=== PATIENT | male | born 1960 | race Two or more races ===

== ENCOUNTER 2020-06-12 01:20 | Inpatient (IN) | payer MEDICAID ==
[~2020-06-12] VITALS: Ht 175.3 cm; Wt 113.6 kg
[2020-06-12] VITALS (18 sets, daily range): BP systolic 108–142; BP diastolic 50–80
--- NOTE | 2020-06-12 01:34 | NUR ---
NEW LABS NOT ORDERED AT THIS TIME
[2020-06-12] MEDS ORDERED: acetaminophen 325mg tablet PO PRN (02:25)
[2020-06-12] MEDS ORDERED: potassium CL 10mEq/100ml bag 100 ML IV PRN ×2 (02:25)
[2020-06-12] MEDS ORDERED: mag hydrox/Alum hydrox/simeth 30ml oral suspension PO PRN (02:25)
[2020-06-12] MEDS ORDERED: magnesium 4gm in 100ml NS 100 ML IV PRN (02:25)
[2020-06-12] MEDS ORDERED: docusate sod 100mg capsule PO PRN (02:25)
[2020-06-12] MEDS ORDERED: potassium Cl 20 mEq SR tablet PO PRN ×2 (02:25)
[2020-06-12] MEDS ORDERED: ondansetron/PF 4mg/2ml inj IV PRN ×2 (02:25→15:05)
[2020-06-12] MEDS ORDERED: HYDROmorphone inj. 0.5 MG/0.5 ML DISP.SYRIN IV PRN (02:25)
[2020-06-12] MEDS ORDERED: magnesium 2GM in 50ml NS 50 ML IV PRN (02:25)
[2020-06-12] MEDS ORDERED: proparacaine 0.5% ophthalmic drops 15ml RIGHTEYE ONE (02:35)
--- NOTE | 2020-06-12 03:00 | NUR ---
Patient in room [facility]. I have received report from HARLEY Epperson and had the opportunity to ask questions and assume patient care.
[2020-06-12 03:13] LABS: BASOPHILS # (AUTO) 0.1 X10'3 (0-0.2); BASOPHILS % (AUTO) 0.9 % (0-1); EOSINOPHILS # (AUTO) 0.3 X10'3 (0-0.9); EOSINOPHILS % (AUTO) 3.4 % (0-6); HEMOGLOBIN 13.4 g/dl (14.0-17.9); LYMPHOCYTES # (AUTO) 1.9 X10'3 (1.1-4.8); LYMPHOCYTES % (AUTO) 25.2 % (21-51); MEAN CORPUSCULAR HEMOGLOBIN 31.4 PG (27.0-31.0); MEAN CORPUSCULAR HGB CONC 33.5 g/dL (33.0-36.5); MEAN CORPUSCULAR VOLUME 93.6 FL (78-98); MEAN PLATELET VOLUME 9.1 FL (7.4-10.4); MONOCYTES # (AUTO) 0.6 X10'3 (0-0.9); MONOCYTES % (AUTO) 7.9 % (2-12); NEUTROPHILS # (AUTO) 4.7 X10'3 (1.8-7.7); NEUTROPHILS % (AUTO) 62.6 % (42-75); PLATELET COUNT 123 X10'3 (140-440); RED BLOOD COUNT 4.27 X10'6 (4.70-6.10); RED CELL DISTRIBUTION WIDTH 14.6 % (11.5-14.5); WHITE BLOOD COUNT 7.5 X10'3 (4.5-11.0)
[2020-06-12] MEDS: normal saline 1000ml 1,000 ML IV SCH ×3 (03:29→22:22)
[2020-06-12 03:30] LABS: ALANINE AMINOTRANSFERASE 59 U/L (12-78); ALBUMIN 3.4 G/DL (3.4-5.0); ALBUMIN/GLOBULIN RATIO 1.1 (1.1-1.5); ALKALINE PHOSPHATASE 55 IU/L (46-116); ANION GAP 6 (8-16); ASPARTATE AMINO TRANSFERASE 26 U/L (10-37); BILIRUBIN,TOTAL 0.5 MG/DL (0.1-1.0); BLOOD UREA NITROGEN 18 MG/DL (7-18); BUN/CREATININE RATIO 14.5 (5.4-32.0); CALCIUM 7.9 MG/DL (8.5-10.1); CHLORIDE 107 MMOL/L (99-107); CREATININE 1.24 MG/DL (0.60-1.10); GLUCOSE 120 MG/DL (70-104); POTASSIUM 4.5 MMOL/L (3.5-5.1); SODIUM 139 MMOL/L (135-145); TOTAL CARBON DIOXIDE 25.6 MMOL/L (24-32); TOTAL PROTEIN 6.4 G/DL (6.4-8.2); eGFR 60 ML/MIN
[2020-06-12] MEDS: HYDROmorphone 1 mg/ml syringe IV PRN ×4 (03:33→23:32)
--- NOTE | 2020-06-12 06:13 | NUR ---
Problems reprioritized. Patient report given, questions answered & plan of care reviewed with HARLEY Coleman.
--- NOTE | 2020-06-12 06:14 | NUR ---
Patient in room [facility]. I have received report from HARLEY Zeng and had the opportunity to ask questions and assume patient care.
[2020-06-12] MEDS ORDERED: GABA800T11 PO (07:25)
[2020-06-12] MEDS ORDERED: METH-604 PO (07:25)
[2020-06-12] MEDS ORDERED: TEST200V10 IM (07:25)
[2020-06-12] MEDS ORDERED: LISI10TA4 PO (07:25)
[2020-06-12] MEDS: K and/or MAG REPLACEMENT MC SCH ×2 (07:34→20:00)
[2020-06-12] MEDS ORDERED: enoxaparin 40mg/0.4ml syringe SQ SCH (08:00)
[2020-06-12] MEDS ORDERED: CefTRIAXone/D5W-Rocephin 1gm 50 ML IV SCH (08:00)
--- NOTE | 2020-06-12 10:27 | NUR ---
Patient in room [facility]. I have received report from recreation superintendent and had the opportunity to ask questions and assume patient care.
[2020-06-12] MEDS ORDERED: ketorolac tromethamine 15mg/ml inj. IV ONE (11:05)
[2020-06-12] MEDS ORDERED: lisinopril 10 MG tablet PO SCH (11:13)
[2020-06-12] MEDS ORDERED: methimazole 5mg tablet PO SCH (11:15)
--- NOTE | 2020-06-12 11:30 | NUR ---
Problems reprioritized. Patient report given, questions answered & plan of care reviewed with HARLEY Addison.
[2020-06-12] MEDS: gabapentin 400mg capsule PO SCH ×2 (13:00→21:34)
--- NOTE | 2020-06-12 14:25 | NUR ---
PT TRANSFERRED TO OR
[2020-06-12] MEDS ORDERED: morphine 4 MG/ML inj SYRINge IV PRN (15:05)
[2020-06-12] MEDS ORDERED: labetalol 20mg/4ml (5mg/ml) syringe IV PRN (15:05)
[2020-06-12] MEDS ORDERED: fentaNYL/PF 50MCG/1 ML 2ML syringe IV PRN (15:05)
[2020-06-12] MEDS ORDERED: hydrALAZINE 20mg/ml inj. IV PRN (15:05)
[2020-06-12] MEDS ORDERED: morphine 2 MG/ML inj. syringe IV PRN (15:05)
[2020-06-12] MEDS ORDERED: ringers solution, lacted 1,000 ML IV SCH (15:05)
[2020-06-12] MEDS ORDERED: dexamethasone sod phosphate 10mg/ml inj ONE (15:06)
[2020-06-12] MEDS ORDERED: atropine 0.4 mg/ml 20ml vial ONE (15:06)
[2020-06-12] MEDS ORDERED: sevoflurane 250ml liquid IH ONE (15:06)
--- NOTE | 2020-06-12 15:09 | NUR ---
CALLED REPORT TO RECOVERY
[2020-06-12] MEDS ORDERED: fentaNYL/PF 50MCG/1 ML 2ML syringe ONE (15:10)
[2020-06-12] MEDS ORDERED: midazolam 2 mg/2 ml injection ONE (15:10)
[2020-06-12] MEDS ORDERED: propofol inj 20 ML IV ONE (15:11)
[2020-06-12] MEDS ORDERED: LIDOcaine 2% (20mg/ml) 5ml vial ONE (15:11)
[2020-06-12] MEDS ORDERED: ondansetron/PF 4mg/2ml inj ONE (15:16)
[2020-06-12] MEDS ORDERED: iohexol 300 MG/1 ML 50ml polymer ONE ×2 (15:23→15:32)
--- NOTE | 2020-06-12 15:47 | NUR ---
Received from OR via , accompanied by Anesthesiologist DR OLVERA and report given by Anesthesiolgist. PT IS SLEEPING WITH ORAL AIRWAY IN PLACE, SKIN WARM AND PINK, PIV LEFT FA 18G PATENT WITH NS 100MLS/HR, SCD'S.
[2020-06-12] MEDS: fentaNYL/PF 50MCG/1 ML 2ML syringe IV PRN ×2 (15:54→16:12)
--- NOTE | 2020-06-12 15:57 | NUR ---
PT AWAKENED AND ORAL AIRWAY REMOVED. SATS 100%
--- NOTE | 2020-06-12 16:27 | NUR ---
Report called to receiving nurse. Transferred via [facility] . Special Issues communicated to receiving nurse JIAN SOUZA. PT IS AWAKE, PAIN TOLERABLE AFTER IV PAIN MEDICATION, TRANSFER ROUTINE ORDERS FOR DR TREVINO PLACED IN COMUPTER, PIV PATENT, SCD'S, VSS, PT MEETS DISCHARGE CRITERIA.
[2020-06-12] MEDS ORDERED: HYDR-4383 PO (17:33)
[2020-06-12] MEDS ORDERED: CEPH500C5 PO (17:33)
--- NOTE | 2020-06-12 18:27 | NUR ---
Problems reprioritized. Patient report given, questions answered & plan of care reviewed with PAT RN.
--- NOTE | 2020-06-12 18:30 | NUR ---
shift change report given by HARLEY Addison; informed pt to be discharged buddy
[2020-06-12] MEDS ORDERED: lactobacillus rhamnosus 10,000 MMU CELLS/CAPSULE PO SCH (20:00)
[2020-06-12] MEDS ORDERED: tamsulosin 0.4mg capsule PO SCH (21:00)
--- NOTE | 2020-06-12 23:55 | NUR ---
checked q30-60 min; very awake & alert since meeting pt at 1830; son here to take pt home; pt steady when up; no c/o's of pain or discomfort at this time; exit care folder given to pt & reviewed literature; questions answered; discharged with belongings & transported via w/c to his son
[2020-06-23] MEDS ORDERED: TESTOSTERONE CYPIONATE 200 MG/ML VIAL IM SCH (08:00)
== END 2020-06-12 23:55 | disposition home or self-care (01) | DRG 465 ==
LOC: ER 01:21 → ED HOLD 02:22 → SUR 3N 03:15
PROVIDERS: ADMIT Family Medicine; ATTEND Family Medicine
PROC: BT1F1ZZ Fluoroscopy of Left Kidney, Ureter and Bladder using Low Osmolar Contrast (ICD-10-PCS; 2020-06-12)
PROC: 0T778DZ Dilation of Left Ureter with Intraluminal Device, Via Natural or Artificial Opening Endoscopic (ICD-10-PCS; principal; 2020-06-12 15:06)
DX: N13.2 Hydronephrosis with renal and ureteral calculous obstruction (principal); I10 Essential (primary) hypertension; K76.0 Fatty (change of) liver, not elsewhere classified; E29.1 Testicular hypofunction; N40.0 Benign prostatic hyperplasia without lower urinary tract symptoms; Z80.0 Family history of malignant neoplasm of digestive organs; Z87.891 Personal history of nicotine dependence; Z86.73 Personal history of transient ischemic attack (TIA), and cerebral infarction without residual deficits; J45.909 Unspecified asthma, uncomplicated; E66.9 Obesity, unspecified; Z68.37 Body mass index [BMI] 37.0-37.9, adult
CPT/HCPCS: 36415; 76000; 80053; 82948; 85025; 85730; 87081; 93005; 99285; A4618; C1758; C1769; C2617; G0378; J0461; J0696; J1100; J1170; J1885; J2001; J2250; J2405; J2704; J3010; J7030; Q9967